=== PATIENT | female | born 1980 | race Caucasian/White ===

== ENCOUNTER → 2018-01-19 | Outpatient (REF) | payer OTHER ==
[2018-01-23 14:12] LABS: HPV HYBRID CAPTURE II Negative (Negative)
== END ==
LOC: M LAB REF 13:23
DX: Z12.4 Encounter for screening for malignant neoplasm of cervix (principal); R87.610 Atypical squamous cells of undetermined significance on cytologic smear of cervix (ASC-US)
CPT/HCPCS: G0123

== ENCOUNTER → 2020-10-07 | Outpatient (REF) | payer BC ==
[~2020-10-07] MED LIST: COLA100C5 PO; MOTR200T44 PO; PERC5TAB12 PO; STUATAB PO
== END ==
LOC: M SFHCWAGY 09:55
PROVIDERS: ATTEND Advanced Practice Midwife
DX: Z12.4 Encounter for screening for malignant neoplasm of cervix (principal)

== ENCOUNTER → 2020-10-21 | Outpatient (REF) | payer BC | LOC: M SFHCWAGY 16:49 | PROVIDERS: ATTEND Advanced Practice Midwife | DX: Z11.3 Encounter for screening for infections with a predominantly sexual mode of transmission (principal) ==

== ENCOUNTER → 2021-01-07 | Outpatient (REF) | payer BC | LOC: M SFHCWAGY 19:16 | PROVIDERS: ATTEND Advanced Practice Midwife | DX: D23.71 Other benign neoplasm of skin of right lower limb, including hip (principal) ==

== ENCOUNTER → 2022-04-20 | Outpatient (CLI) | payer BC | LOC: M WHC 10:06 | PROVIDERS: ATTEND Advanced Practice Midwife | DX: Z12.31 Encounter for screening mammogram for malignant neoplasm of breast (principal); N63.11 Unspecified lump in the right breast, upper outer quadrant; N63.21 Unspecified lump in the left breast, upper outer quadrant ==

== ENCOUNTER → 2022-05-19 | Outpatient (CLI) | payer BC | LOC: M WHC 07:45 | PROVIDERS: ATTEND Advanced Practice Midwife | DX: N63.11 Unspecified lump in the right breast, upper outer quadrant (principal); N63.12 Unspecified lump in the right breast, upper inner quadrant | CPT/HCPCS: 76642; 77066; G0279 ==

== ENCOUNTER → 2024-11-27 | Outpatient (REF) | payer BC ==
[2024-11-29 14:53] LABS: HPV APTIMA Not Detected (Not Detected)
== END ==
LOC: M PLALAB 12:44
PROVIDERS: ATTEND Advanced Practice Midwife
DX: Z12.4 Encounter for screening for malignant neoplasm of cervix (principal)
CPT/HCPCS: 87624; G0123